=== PATIENT | male | born 1955 | race Caucasian/White ===

== ENCOUNTER 2016-12-30 07:57 | Emergency (ER) | payer BC, OTHER ==
[~2016-12-30] VITALS: Ht 185.4 cm; Wt 104.2 kg
[2016-12-30 08:00] VITALS: BP 146/76; PULSE 65; TEMP 36.7; O2SAT 99; Ht 185.4 cm; Wt 104.2 kg
[2016-12-30] MEDS ORDERED: DOXY100T17 PO (08:15)
--- NOTE | 2016-12-30 08:15 | EMERGENCY ROOM VISIT NOTE ---
History Report prepared by Mickeyibleisa: Radha Sampson Under the Supervision of: Dr. Demarcus Ibrahim D.O. First contact with patient: 08:05 Chief Complaint: BITE Stated Complaint: TICK BITE History of Present Illness The patient is a 61 year old male who presents to the Emergency Room with complaints of a sudden tick bite to his left axilla that he found this morning. The patient denies any active medical problems and denies being allergic to any medications. He currently rates his discomfort as a 1/10 in severity. Source of History: patient Onset: today Position: other (left axilla) Symptom Intensity: 1/10 Quality: other (tick bite) Timing: other (sudden) Review of Systems See HPI for pertinent positives & negatives. A total of 10 systems reviewed and were otherwise negative. Past Medical & Surgical Surgical Problems: (1) History of appendectomy (2) Hx of splenectomy Family History No pertinent family history stated. Social History Smoking Status: Never Smoker Marital Status: Housing Status: lives with significant other Occupation Status: employed Current/Historical Medications Scheduled Doxycycline (Monohydrate) (Doxycycline Monohydrate), 100 MG PO BID Allergies Coded Allergies: No Known Allergies (Unverified , 12/30/16) Physical Exam Vital Signs Date Time Temp Pulse Resp B/P (MAP) Pulse Ox O2 Delivery O2 Flow Rate FiO2 12/30/16 08:00 36.7 65 18 146/76 99 Room Air Physical Exam GENERAL: Patient is awake, alert, and in no acute distress. Patient is resting comfortably and showing no signs of anxiety EYES: The conjunctivae are clear. The pupils are round and reactive. EARS, NOSE, MOUTH AND THROAT: The nose is without any evidence of any deformity. Mucous membranes are moist tongue is midline NECK: The neck is nontender and supple. RESPIRATORY: Normal respiratory effort is noted there is no evidence of wheezing rhonchi or rales CARDIOVASCULAR: Regular rate and rhythm noted there no murmurs rubs or gallops normal S1 normal S2 GASTROINTESTINAL: The abdomen is soft. Bowel sounds are present in all quadrants. Abdomen is nontender MUSCULOSKELETAL/EXTREMITIES: There is no evidence of gross deformity full range of motion is noted in the hips and shoulders SKIN: Tick imbedded in left axilla, partially engorged, with surrounding erythema approximately 2.5 cm in diameter. NEUROLOGIC: Patient is awake alert and oriented x3. Medical Decision & Procedures ED Course 0808: The patient was evaluated in room B4B. A complete history and physical examination were performed. I removed the tick from the patient's axilla a this time. I discussed all the exam findings with him and I discussed the treatment plan. He verbalized complete understanding and agreement. He is ready to go home shortly. Medical Decision Prior records reviewed and summarized as above. Triage Nursing notes reviewed. The patient's history was concerning for swelling and redness of the skin. Differential diagnosis: Etiologies such as cellulitis, abscess, MRSA infection, DVT, necrotizing fasciitis, dermatitis, drug eruption, as well as others were entertained.. The patient is a 61-year-old male who presented to the emergency department for an evaluation of a tick bite. The patient found an engorged tick in his left axilla this morning. There appears to be a significant amount of erythema around this site. It appears to be more than just I would expect with a reaction to the tick bite. For this reason the patient was started on a course of doxycycline. I feel this is consistent with primary Lyme disease. He was encouraged to follow-up with his primary care physician for formal Lyme disease testing in 10-14 days. He was also encouraged to apply triple antibiotic appointment to the area 2-3 times a day. He was also encouraged to return to the emergency department immediately symptoms change worsen or the need arises. Medication Reconcilliation Current Medication List: was personally reviewed by me Impression Primary Impression: Tick bite with subsequent removal of tick Additional Impressions: Lyme disease Erythema migrans (Lyme disease) Scribe Attestation The scribe's documentation has been prepared under my direction and personally reviewed by me in its entirety. I confirm that the note above accurately reflects all work, treatment, procedures, and medical decision making performed by me. Departure Information Dispostion Home / Self-Care Prescriptions Doxycycline (Monohydrate) (DOXYCYCLINE MONOHYDRATE) 100 Mg Tab 100 MG PO BID, #42 TABS Prov: Demarcus Ibrahim, DO 12/30/16 Referrals No Doctor, Assigned (PCP) Forms HOME CARE DOCUMENTATION FORM, IMPORTANT VISIT INFORMATION Patient Instructions Bites Tick, ED Lyme Disease, My [facility] Additional Instructions Follow up with your Doctor for Lyme disease testing in 10-14 days. Put triple antibiotic ointment to the bite area 2-3 times a day. Problem Qualifiers
== END 2016-12-30 08:56 | disposition home or self-care (01) ==
LOC: C.EDB 07:59
DX: S40.862A Insect bite (nonvenomous) of left upper arm, initial encounter (principal); W57.XXXA Bitten or stung by nonvenomous insect and other nonvenomous arthropods, initial encounter